=== PATIENT | male | born 1960 | race Caucasian/White ===

== ENCOUNTER 2019-06-13 19:55 | Outpatient (REF) | payer SELFPAY ==
[2019-06-13 20:34] LABS: Estmated Average Glucose 209; Hemoglobin A1C 8.9 % (4.0-6.0)
== END 2019-06-13 19:56 | disposition home or self-care (01) ==
LOC: LAB 19:55
PROVIDERS: Visit Provider General Practice
DX: Z01.89 Encounter for other specified special examinations (principal)
CPT/HCPCS: 83036

== ENCOUNTER 2019-10-24 17:46 | Outpatient (CLI) | payer SELFPAY ==
[2019-10-24 20:16] LABS: Alanine Aminotransferase 34 U/L (0-41); Albumin Level 4.8 g/dL (3.5-5.2); Alkaline Phosphatase 86 IU/L (40-130); Anion Gap 19.5 (5-19); Aspartate Amino Transferase 25 U/L (0-40); Blood Urea Nitrogen 12 mg/dL (8-23); Calcium 9.8 mg/dL (8.5-10.5); Carbon Dioxide 21 mmol/L (22-29); Chloride 99 mmol/L (98-107); Chol HDL Ratio 4.25 mg/dL (1.0-5.00); Cholesterol 119 mg/dL (0-200); Globulin 1.9 g/dL (1.3-4.6); Glomerular Filtration Rate 114.6 mL/min (90-130); Glucose 342 mg/dL (65-115); HDL Cholesterol 28 mg/dL (60-100); LDL Cholesterol Calculated 32 mg/dL (50-129); LDL HDL Ratio 1.14 RATIO (0.00-3.22); Osmolality Calculated 292 mOsm/kg (285-295); Potassium 3.5 mmol/L (3.5-5.1); Sodium 136 mmol/L (136-145); Total Bilirubin 0.4 mg/dL (0.15-1.2); Total Protein 6.7 g/dL (6.6-8.7); Triglycerides 296 mg/dL (0-150)
[2019-10-24 20:24] LABS: Creatinine Urine, Random 85 mg/dL (39-259)
[2019-10-24 21:03] LABS: Microalbum Creatinine Ratio Ur 12 mg/dL (0-20); Microalbumin Random Urine 1 ug/dL (0-20)
[2019-10-24 21:57] LABS: Estmated Average Glucose 235; Hemoglobin A1C 9.8 % (4.0-6.0)
== END 2019-10-24 17:47 | disposition home or self-care (01) ==
LOC: LAB 17:46
PROVIDERS: Visit Provider General Practice
DX: E11.9 Type 2 diabetes mellitus without complications (principal)
CPT/HCPCS: 80053; 80061; 82044; 83036

== ENCOUNTER 2020-01-09 18:12 | Outpatient (CLI) | payer SELFPAY ==
[2020-01-09 19:35] LABS: Basophils # 0.1 10^3/uL (0.0-0.1); Basophils % 1.1 %; Eosinophils # 0.4 10^3/uL (0.0-0.8); Eosinophils % 4.6 %; Hematocrit 45.3 % (42.0-52.0); Hemoglobin 14.5 g/dL (11.7-16.6); Lymphocytes % 31.3 %; Mean Corpuscular Hemoglobin 27.4 pg (28.0-34.0); Mean Corpuscular Volume 85.6 fL (80-94); Mean Platelet Volume 10.4 fL (7.4-10.4); Monocytes # 0.7 10^3/uL (0.2-0.9); Monocytes % 6.9 %; Neutrophils # 5.38 10^3/uL (1.8-7.7); Neutrophils % 55.8 %; Nucleated Red Blood Cells % 0 %; Platelet Count 315 10^3/cmm (130-400); Red Blood Count 5.29 10^6/uL (4.1-5.3); Red Cell Distribution Width 13.7 % (12.1-15.1); White Blood Count 9.6 10^3/uL (4.0-10.0)
[2020-01-09 19:54] LABS: Alanine Aminotransferase 41 U/L (0-41); Albumin Level 4.7 g/dL (3.5-5.2); Alkaline Phosphatase 97 IU/L (40-130); Anion Gap 21.3 (5-19); Aspartate Amino Transferase 39 U/L (0-40); Blood Urea Nitrogen 21 mg/dL (8-23); Calcium 9.2 mg/dL (8.5-10.5); Carbon Dioxide 20 mmol/L (22-29); Chloride 98 mmol/L (98-107); Globulin 2.8 g/dL (1.3-4.6); Glomerular Filtration Rate 98.3 mL/min (90-130); Glucose 306 mg/dL (65-115); Osmolality Calculated 288 mOsm/kg (285-295); Potassium 4.3 mmol/L (3.5-5.1); Sodium 135 mmol/L (136-145); Total Bilirubin 0.6 mg/dL (0.15-1.2); Total Protein 7.5 g/dL (6.6-8.7)
[2020-01-09 22:19] LABS: Estmated Average Glucose 249; Hemoglobin A1C 10.3 % (4.0-6.0)
== END 2020-01-09 18:13 | disposition home or self-care (01) ==
LOC: LAB 18:15
PROVIDERS: Visit Provider General Practice
DX: E11.9 Type 2 diabetes mellitus without complications (principal)
CPT/HCPCS: 80053; 83036; 85025

== ENCOUNTER 2021-01-21 17:10 | Outpatient (CLI) | payer SELFPAY ==
[2021-01-21 17:57] LABS: Estmated Average Glucose 272; Hemoglobin A1C 11.1 % (4.0-6.0)
[2021-01-21 18:06] LABS: Alanine Aminotransferase 36 U/L (0-41); Albumin Level 4.5 g/dL (3.5-5.2); Alkaline Phosphatase 116 IU/L (40-130); Aspartate Amino Transferase 30 U/L (0-40); Blood Urea Nitrogen 12 mg/dL (8-23); Calcium 9.6 mg/dL (8.5-10.5); Carbon Dioxide 22 mmol/L (22-29); Chloride 100 mmol/L (98-107); Globulin 2.3 g/dL (1.3-4.6); Glomerular Filtration Rate 114.3 mL/min (90-130); Glucose 302 mg/dL (65-115); Osmolality Calculated 297 mOsm/kg (285-295); Sodium 138 mmol/L (136-145); Total Bilirubin 0.5 mg/dL (0.15-1.2); Total Protein 6.8 g/dL (6.6-8.7)
[2021-01-21 18:20] LABS: Anion Gap 20.4 (5-19); Potassium 4.4 mmol/L (3.5-5.1)
== END 2021-01-21 17:11 | disposition home or self-care (01) ==
LOC: LAB 17:11
PROVIDERS: Visit Provider General Practice
DX: I10 Essential (primary) hypertension (principal); E11.9 Type 2 diabetes mellitus without complications; E78.5 Hyperlipidemia, unspecified
CPT/HCPCS: 80053; 83036

== ENCOUNTER 2022-01-19 16:54 | Emergency (ER) | payer MEDICAID, SELFPAY | END 2022-01-19 17:45 | disposition left against medical advice (07) | PROVIDERS: Emergency Provider Family Medicine; PCP Nurse Practitioner Family | DX: Z53.21 Procedure and treatment not carried out due to patient leaving prior to being seen by health care provider (principal) ==

== ENCOUNTER → 2023-07-05 13:01 | Outpatient (BNVA) | payer MEDICARE, MEDICAID, SELFPAY | PROVIDERS: PCP Nurse Practitioner Family; Visit Provider Podiatrist Foot & Ankle Surgery | DX: E11.69 Type 2 diabetes mellitus with other specified complication (principal); M20.41 Other hammer toe(s) (acquired), right foot; M20.42 Other hammer toe(s) (acquired), left foot; L60.3 Nail dystrophy; M21.6X1 Other acquired deformities of right foot; M21.6X2 Other acquired deformities of left foot; Z79.4 Long term (current) use of insulin; Z79.84 Long term (current) use of oral hypoglycemic drugs | CPT/HCPCS: 11721 ==

== ENCOUNTER → 2023-10-31 12:17 | Outpatient (BNVA) | payer MEDICARE, MEDICAID, SELFPAY | PROVIDERS: PCP Nurse Practitioner Family; Visit Provider Podiatrist Foot & Ankle Surgery | DX: E11.69 Type 2 diabetes mellitus with other specified complication (principal); M20.41 Other hammer toe(s) (acquired), right foot; M20.42 Other hammer toe(s) (acquired), left foot; L60.3 Nail dystrophy; M21.6X1 Other acquired deformities of right foot; M21.6X2 Other acquired deformities of left foot; Z79.4 Long term (current) use of insulin; Z79.84 Long term (current) use of oral hypoglycemic drugs | CPT/HCPCS: 99213 ==

== ENCOUNTER → 2024-01-31 13:15 | Outpatient (BNVA) | payer MEDICARE, MEDICAID, SELFPAY | PROVIDERS: PCP Nurse Practitioner Family; Visit Provider Podiatrist Foot & Ankle Surgery | DX: M20.41 Other hammer toe(s) (acquired), right foot; M20.42 Other hammer toe(s) (acquired), left foot; E11.69 Type 2 diabetes mellitus with other specified complication; M21.6X1 Other acquired deformities of right foot; M21.6X2 Other acquired deformities of left foot; Z79.4 Long term (current) use of insulin; Z79.84 Long term (current) use of oral hypoglycemic drugs | CPT/HCPCS: 99213 ==

== ENCOUNTER → 2024-08-07 12:29 | Outpatient (BNVA) | payer MEDICARE, MEDICAID, SELFPAY | PROVIDERS: PCP Nurse Practitioner Family; Visit Provider Podiatrist Foot & Ankle Surgery | DX: E13.69 Other specified diabetes mellitus with other specified complication (principal); M20.41 Other hammer toe(s) (acquired), right foot; M20.42 Other hammer toe(s) (acquired), left foot; M21.6X1 Other acquired deformities of right foot; M21.6X2 Other acquired deformities of left foot; Z79.4 Long term (current) use of insulin; Z79.84 Long term (current) use of oral hypoglycemic drugs | CPT/HCPCS: 99213 ==

== ENCOUNTER → 2025-02-11 10:11 | Outpatient (BNVA) | payer MEDICARE, MEDICAID, SELFPAY | PROVIDERS: PCP Nurse Practitioner Family; Visit Provider Podiatrist Foot & Ankle Surgery | DX: E11.8 Type 2 diabetes mellitus with unspecified complications (principal); M20.41 Other hammer toe(s) (acquired), right foot; M20.42 Other hammer toe(s) (acquired), left foot; E11.69 Type 2 diabetes mellitus with other specified complication; M21.6X1 Other acquired deformities of right foot; M21.6X2 Other acquired deformities of left foot; Z79.4 Long term (current) use of insulin; Z79.84 Long term (current) use of oral hypoglycemic drugs | CPT/HCPCS: 99213 ==

== ENCOUNTER 2025-02-14 13:18 | Outpatient (CLI) | payer MEDICARE, MEDICAID, SELFPAY ==
--- NOTE | 2025-02-14 13:29 | USR_ITS ---
PROCEDURE INFORMATION: Exam: US Retroperitoneal, Complete, Kidneys and Bladder Exam date and time: 02/14/2025 1:55 PM Age: 64 years old Clinical indication: Abdominal pain TECHNIQUE: Imaging protocol: Real-time ultrasound of the retroperitoneum with image documentation. Complete exam focused on the bilateral kidneys and urinary bladder. COMPARISON: No relevant prior studies available. FINDINGS: Right kidney: Measures 11.2 cm sagittal diameter, 5.7 cm AP diameter, 5.6 cm transverse. Slight lobulation of the outlined but no significant cortical thinning. Remains good differentiation between renal sinus and cortices. Slight distension right renal pelvis without distended calices may represent extrarenal pelvis. Left kidney: Measures 12.1 cm sagittal diameter, 5.3 cm AP diameter, 4.9 cm transverse diameter. Slight lobulation renal outlines but no cortical thinning. Remains good differentiation renal sinuses and cortices. No hydronephrosis Urinary bladder: Mild prostatic enlargement with mild lobulation of the outlines. Prevoid urinary bladder volume 146.67 mL. Postvoid urinary bladder actually greater measuring 201.73 mL. No significant wall thickening. Maybe slight trabeculation. US/US renal BI w/PV bladder 24006 IMPRESSION: 1. Unremarkable kidneys. 2. Maybe slight trabeculation of the urinary bladder. Postvoid volume slightly larger than the prevoid volume. 3. Mild prostatic enlargement with lobulation. .
== END 2025-02-14 13:19 | disposition home or self-care (01) ==
LOC: RAD 13:19
PROVIDERS: PCP Nurse Practitioner Family; Visit Provider Nurse Practitioner Family
DX: N50.82 Scrotal pain (principal); N40.0 Benign prostatic hyperplasia without lower urinary tract symptoms; I86.1 Scrotal varices
CPT/HCPCS: 76770; 76857

== ENCOUNTER 2025-03-25 09:45 | Outpatient (CLI) | payer MEDICARE, MEDICAID, SELFPAY | END 2025-03-25 09:46 | disposition home or self-care (01) | LOC: SPT 09:46 | PROVIDERS: PCP Nurse Practitioner Family; Visit Provider Podiatrist Foot & Ankle Surgery | DX: Z46.89 Encounter for fitting and adjustment of other specified devices (principal); E11.42 Type 2 diabetes mellitus with diabetic polyneuropathy | CPT/HCPCS: 97161 ==